=== PATIENT | male | born 1990 | race Asian ===

== ENCOUNTER 2020-07-22 17:19 | Emergency (ER) | payer OTHER ==
[~2020-07-22] VITALS: Ht 182.9 cm; Wt 90.9 kg
--- NOTE | 2020-07-22 22:39 | REPVR ---
PROCEDURE INFORMATION: Exam: XR Left Knee Exam date and time: 07/22/2020 9:38 PM Age: 29 years old Clinical indication: Pain; Knee; Left; Additional info: Trauma TECHNIQUE: Imaging protocol: XR Left knee. Views: 4 or more views. COMPARISON: No relevant prior studies available. FINDINGS: Bones/joints: Normal. No fracture. Soft tissues: Normal. IMPRESSION: Negative left knee. Electronically signed by: Armando Miranda On 07/22/2020 22:39:41 PM
[2020-07-22 23:07] VITALS: BP 122/78
== END 2020-07-22 23:13 | disposition home or self-care (01) ==
LOC: M ED 17:19
DX: S80.02XA Contusion of left knee, initial encounter (principal); W22.8XXA Striking against or struck by other objects, initial encounter; Y92.9 Unspecified place or not applicable; Y93.9 Activity, unspecified; Y99.9 Unspecified external cause status